=== PATIENT | male | born 1960 | race Hispanic/Latino ===

== ENCOUNTER 2019-03-01 08:22 | Emergency (ER) | payer OTHER ==
[2019-03-01 08:30] VITALS: BMI 30.2
[2019-03-01 08:36] VITALS: BP 153/97; PULSE 64; RESP 20; TEMP 98.3; O2SAT 98
[2019-03-01] MEDS ORDERED: Bacitracin 500 Units/gm Oint Foilpak UD TOP STA (08:45)
--- NOTE | 2019-03-01 08:50 | ED PDOC ---
Arrival/HPI <Vasile Rosario - Last Filed: 03/01/19 09:36> - General Historian: Patient - History of Present Illness Narrative History of Present Illness (Text): 03/01/19 08:47 CC: hand swelling HPI: 58 yo male w/ PMH of hypothyroidism, HTN, Hypercholesterolemia comes to ED for evaluation of hand swelling. 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 Patient has noticed skin break down for past 3 months that he has followed up his primary medical doctor for who prescribed a topical cream. Of note, the past two days patient has noted increased swelling and tenderness in his right hand with movement. Denies fever s. Patient states that this has happened once in the past requiring oral antibiotics. Denies fevers, chills, chest pain, sob, n/v, constipation or diarrhea, dysuria, oozing or pus. Time/Duration: < week Symptom Onset: Sudden Symptom Course: Unchanged Quality: Aching Severity Level: 4 Activities at Onset: Light Context: Sitting <Patty Lazo - Last Filed: 03/01/19 09:44> - General Chief Complaint: Upper Extremity Problem/Injury Time Seen by Provider: 03/01/19 08:23 Past Medical History - Provider Review Nursing Documentation Reviewed: Yes Primary Care Provider: Non [facility] Provider, - Cardiac Hx Cardiac Disorders: Yes Hx Hypertension: Yes - Endocrine/Metabolic Hx Endocrine Disorders: Yes Hx Hypothyroidism: Yes - Psychiatric Hx Substance Use: No - Surgical History Hx Appendectomy: Yes - Anesthesia Hx Anesthesia: Yes Hx Anesthesia Reactions: No Hx Malignant Hyperthermia: No <Patty Lazo - Last Filed: 03/01/19 09:44> Family/Social History - Physician Review Nursing Documentation Reviewed: Yes Family/Social History: No Known Family HX Smoking Status: Never Smoked Hx Alcohol Use: Yes Frequency of alcohol use: Socially Hx Substance Use: No <Patty Lazo - Last Filed: 03/01/19 09:44> Allergies/Home Meds <Vasile Rosario - Last Filed: 03/01/19 09:36> <Patty Lazo - Last Filed: 03/01/19 09:44> Allergies/Adverse Reactions: Allergies No Known Allergies Allergy (Verified 03/01/19 08:23) Home Medications: Home Meds Medication Instructions Recorded Confirmed Aspirin [Ecotrin] 81 mg PO DAILY 03/01/19 03/01/19 Atorvastatin Calcium 5 mg PO DAILY 03/01/19 03/01/19 Irbesartan 150 mg PO DAILY 03/01/19 03/01/19 Levothyroxine [Synthroid] 137 mcg PO DAILY 03/01/19 03/01/19 Review of Systems - Review of Systems Constitutional: Normal. absent: Fatigue, Weight Change, Fevers Eyes: Normal. absent: Vision Changes, Photophobia, Eye Pain ENT: Normal. absent: Hearing Changes, Tinnitus, TMJ Pain Respiratory: Normal. absent: SOB, Cough, Sputum, Wheezing Cardiovascular: Normal. absent: Chest Pain, Palpitations, Edema, Calf Pain Gastrointestinal: Normal. absent: Abdominal Pain, Stool Changes, Constipation, Diarrhea, Nausea, Vomiting Genitourinary Male: Normal. absent: Dysuria, Frequency, Hematuria Musculoskeletal: Normal. absent: Arthralgias, Back Pain, Neck Pain, Joint Swelling Skin: Cellulitis, Other (swelling in right hand). absent: Normal, Rash, Pruritis, Skin Lesions, Laceration, Abscess Neurological: Normal. absent: Headache, Dizziness, Focal Weakness Endocrine: Normal. absent: Diaphoresis, Polyuria, Polydipsia Hemo/Lymphatic: Normal. absent: Adenopathy, Easy Bleeding, Easy Bruising Psychiatric: Normal. absent: Anxiety, Depression, Suicidal Ideation <Patty Lazo - Last Filed: 03/01/19 09:44> Physical Exam Vital Signs Temp Pulse Resp BP Pulse Ox 03/01/19 08:36 98.3 F 64 20 153/97 H 98 <Vasile Rosario - Last Filed: 03/01/19 09:36> Vital Signs Reviewed: Yes Vital Signs Temp Pulse Resp BP Pulse Ox 03/01/19 08:36 98.3 F 64 20 153/97 H 98 Temperature: Afebrile Blood Pressure: Hypertensive Pulse: Regular Respiratory Rate: Normal Appearance: Positive for: Well-Appearing, Non-Toxic, Comfortable Pain Distress: None Mental Status: Positive for: Alert and Oriented X 3 - Systems Exam Head: Present: Atraumatic, Normocephalic Pupils: Present: PERRL Extroacular Muscles: Present: EOMI Conjunctiva: Present: Normal Mouth: Present: Moist Mucous Membranes Neck: Present: Normal Range of Motion. No: Meningeal Signs, JVD Respiratory/Chest: Present: Clear to Auscultation, Good Air Exchange. No: Respiratory Distress, Accessory Muscle Use Cardiovascular: Present: Regular Rate and Rhythm, Normal S1, S2. No: Murmurs Abdomen: Present: Normal Bowel Sounds. No: Tenderness, Distention, Peritoneal Signs, Rebound, Guarding Upper Extremity: Present: Tenderness (right hand), Swelling (right hand), Erythema (right hand). No: Normal Inspection, Cyanosis, Edema Lower Extremity: Present: Normal Inspection. No: Edema, CALF TENDERNESS Neurological: Present: GCS=15, CN II-XII Intact, Speech Normal Skin: Present: Warm, Dry, Normal Color, Hot (site of right hand). No: Rashes, Abscess Psychiatric: Present: Alert, Oriented x 3, Normal Insight, Normal Concentration <Patty Lazo - Last Filed: 03/01/19 09:44> Medical Decision Making ED Course and Treatment: 03/01/19 09:06 Seen and examined with the resident. Our history and physical exam reveals a gentleman complaining of right hand and finger cracked skin pain redness and swelling. This is been on and off for months. Patient works on a barge with multiple chemicals. He works 2 weeks on and then 2 weeks off. When he is off his symptoms improved. He was seen by his PMD in [place] and given a steroid cream with some improvement. He states that he wears gloves and gets sweaty underneath. The skin becomes macerated and then cracked and infected. - Medication Orders Current Medication Orders: Discontinued Medications Bacitracin (Bacitracin) 2 ea TOP STAT STA Stop: 03/01/19 08:46 Last Admin: 03/01/19 09:04 Dose: 2 ea Cephalexin Monohydrate (Keflex) 500 mg PO STAT STA; Protocol Stop: 03/01/19 08:46 Last Admin: 03/01/19 09:03 Dose: 500 mg <Vasile Rosario - Last Filed: 03/01/19 09:36> ED Course and Treatment: 03/01/19 08:53 Impression 58 yo male w/ PMH of hypothyroidism, HTN, Hypercholesterolemia comes to ED for evaluation of hand swelling. Plan -CBC -Keflex -Bacitracin ointment Prior Visits No prior visits Progress Notes pending cbc, likely d/c with oral abx 03/01/19 09:24 CBC resulted with no white count In setting of no white and afebrile, will discharge patient oral keflex for 7 days and f/u with pmd Will advise patient to followup with dermatology, Dr. Geneva Mejia Re-evaluation Time: 09:24 Reassessment Condition: Re-examined, Unchanged - Lab Interpretations Lab Results: 03/01/19 08:46 Lab Results 03/01/19 08:46: WBC 7.5, RBC 4.18, Hgb 13.1 L, Hct 39.3 L, MCV 94.0, MCH 31.3, MCHC 33.3, RDW 13.7, Plt Count 238, MPV 8.5, Neut % (Auto) 67.1, Lymph % (Auto) 18.2 L, Pitkin % (Auto) 9.8 H, Eos % (Auto) 4.0, Baso % (Auto) 0.9, Lymph # (Auto) 1.4, Pitkin # (Auto) 0.7 H, Eos # (Auto) 0.3, Baso # (Auto) 0.07, Absolute Neuts (auto) 5.05 I have reviewed the lab results: Yes Interpretation: All labs normal - Medication Orders Current Medication Orders: Bacitracin (Bacitracin) 1 gm TOP STAT STA Stop: 03/01/19 08:46 Cephalexin Monohydrate (Keflex) 500 mg PO STAT STA; Protocol Stop: 03/01/19 08:46 <Patty Lazo - Last Filed: 03/01/19 09:44> Disposition/Present on Arrival - Present on Arrival Any Indicators Present on Arrival: No History of DVT/PE: No History of Uncontrolled Diabetes: No Urinary Catheter: No History of Decub. Ulcer: No - Disposition Have Diagnosis and Disposition been Completed?: Yes Patient Plan: Discharge <Vasile Rosario - Last Filed: 03/01/19 09:36> - Present on Arrival Any Indicators Present on Arrival: No History of DVT/PE: No History of Uncontrolled Diabetes: No Urinary Catheter: No History of Decub. Ulcer: No History Surgical Site Infection Following: None - Disposition Have Diagnosis and Disposition been Completed?: Yes Disposition Time: 09:25 Patient Plan: Discharge <Patty Lazo - Last Filed: 03/01/19 09:44> - Disposition Diagnosis: Cellulitis, Maceration of skin Disposition: HOME/ ROUTINE Patient Problems: Current Active Problems Problem Status Onset Cellulitis Acute Maceration of skin Acute Discharge Instructions (ExitCare): Cellulitis (ED) Additional Instructions: 1. Please followup with primary medical doctor within a week of discharge to ensure resolution of symptoms 2. Please followup with dermatology Dr. Geneva Mejia for continued care of skin breakdown 3. Please return to hospital if symptoms worsen or recur. Prescriptions: Amoxicillin/Clavulanate [Augmentin 875 MG-125 MG] 1 tab PO Q12 #20 tab Betamethasone/Propylene Glyc [Diprolene 0.05% Ointment] 15 gm TP BID #15 oint...g. Referrals: Geneva Mejia MD [Staff Provider] - Follow up with primary Forms: [employer] ([place]hi), WORK NOTE
[2019-03-01 09:12] LABS: BASO # 0.07 K/mm3 (0.0-2.0); BASO % 0.9 % (0.0-3.0); EOS # 0.3 (0.0-0.7); HEMOGLOBIN 13.1 g/dL (14.0-18.0); LYMPH # 1.4 (1.2-3.4); LYMPH % 18.2 % (22.0-35.0); MEAN CORPUSCULAR HEMOGLOBIN 31.3 pg (25.0-35.0); MEAN CORPUSCULAR HGB CONC 33.3 g/dl (31.0-37.0); MEAN PLATELET VOLUME 8.5 fl (7.0-11.0); MONO # 0.7 (0.1-0.6); MONO % 9.8 % (1.0-6.0); RBC 4.18 10^6/uL (3.5-6.1); RED CELL DISTRIBUTION WIDTH 13.7 % (11.5-14.5); WHITE BLOOD COUNT 7.5 10^3/uL (4.5-11.0)
== END 2019-03-01 09:30 | disposition home or self-care (01) ==
LOC: ED 08:22
DX: L03.113 Cellulitis of right upper limb (principal); L98.8 Other specified disorders of the skin and subcutaneous tissue